=== PATIENT | female | born 1970 | race African-American/Black ===

== ENCOUNTER 2024-07-27 01:51 | Emergency (ER) | payer MEDICAID ==
[~2024-07-27] VITALS: Ht 167.6 cm; Wt 80.0 kg
[2024-07-27 01:56] VITALS: BP 187/100; TEMP 36.1; O2SAT 98
[2024-07-27 03:12] VITALS: PULSE 90; RESP 16; O2SAT 98
[2024-07-27] MEDS ORDERED: NALO4SPR BOTHNSTRLS (04:14)
== END 2024-07-27 05:10 | disposition home or self-care (01) ==
LOC: EDBD 01:51 → ER 01:51
DX: T40.2X1A Poisoning by other opioids, accidental (unintentional), initial encounter (principal); Y92.89 Other specified places as the place of occurrence of the external cause
CPT/HCPCS: 99283